=== PATIENT | female | born 1955 | race African-American/Black ===

== ENCOUNTER 2018-02-19 05:42 | Day surgery (SDC) | payer OTHER ==
[~2018-02-19] VITALS: Ht 157.5 cm; Wt 83.6 kg
[~2018-02-19 05:42] MED LIST: ACYC400T PO; CITA-106 PO; CYCL10 PO; DICL25 PO; FLUT16H NASAL; GLIP5 PO; LISI40TA4 PO; METF500T PO; MOME13HF IH; MONT10TA21 PO; OMEP20CA4 PO; PRAV20TA PO; SODIUM CHLORIDE 0.9% 1,000 ML IV ONE
[2018-02-19] MEDS ORDERED: LIDOCAINE 2% 30 ML JELLY TP ONE (05:43)
[2018-02-19] MEDS ORDERED: ALBUTEROL SULFATE 2.5 MG/0.5 ML NEB SOLUTION NEB ONE (05:43)
[2018-02-19] MEDS ORDERED: LIDOCAINE 4% 50 ML SOLUTION TP ONE (05:43)
[2018-02-19] MEDS ORDERED: BENZOCAINE 20% 50 MCG/SPRAY 57 GM TP ONE (05:43)
[2018-02-19] MEDS ORDERED: OMEP20 PO (06:15)
[2018-02-19] MEDS ORDERED: METF-960 PO (06:15)
[2018-02-19] MEDS ORDERED: ONDA4 PO (06:15)
[2018-02-19] MEDS ORDERED: GABA-531 PO (06:15)
[2018-02-19] MEDS ORDERED: ACET-2744 PO (06:15)
[2018-02-19] MEDS ORDERED: PRED10 PO (06:15)
[2018-02-19] MEDS ORDERED: CITA-106 PO (06:15)
[2018-02-19] MEDS ORDERED: TIOT185 IH (06:15)
[2018-02-19] MEDS ORDERED: CYCL10 PO (06:15)
[2018-02-19] MEDS ORDERED: FOLI1 PO (06:15)
[2018-02-19] MEDS ORDERED: MONT10TA21 PO (06:15)
[2018-02-19] MEDS ORDERED: ASPI-1182 PO (06:15)
[2018-02-19] MEDS ORDERED: PRAV20TA4 PO (06:15)
[2018-02-19] MEDS ORDERED: GLIP10 PO (06:15)
[2018-02-19] MEDS ORDERED: AMLO-512 PO (06:15)
[2018-02-19 06:59] LABS: GLUCOMETER DEV NAME(LOC) SDS 5; GLUCOSE,POINT OF CARE 140 MG/DL (70-110)
[2018-02-19] MEDS ORDERED: SODIUM CHLORIDE 0.9% 1,000 ML IV ONE (07:00)
[2018-02-19] MEDS ORDERED: FentaNYL CITRATE-PF 100 MCG/2 ML VIAL ONE (07:41)
[2018-02-19] MEDS ORDERED: MIDAZOLAM HCL 2 MG/2 ML VIAL ONE (07:41)
[2018-02-19] MEDS ORDERED: MethylPREDNISolone SOD SUCC 125 MG/2 ML VIAL IVP ONE (08:30)
[2018-02-19] MEDS ORDERED: OXYGEN THERAPY IH SCH (20:00)
== END 2018-02-19 09:40 | disposition home or self-care (01) ==
LOC: SURGERY 05:42
PROVIDERS: ATTEND Internal Medicine Critical Care Medicine
DX: J38.4 Edema of larynx (principal); B37.0 Candidal stomatitis; J84.111 Idiopathic interstitial pneumonia, not otherwise specified; J98.8 Other specified respiratory disorders; F14.21 Cocaine dependence, in remission; J44.9 Chronic obstructive pulmonary disease, unspecified; I10 Essential (primary) hypertension; E11.9 Type 2 diabetes mellitus without complications; M19.90 Unspecified osteoarthritis, unspecified site; F32.9 Major depressive disorder, single episode, unspecified; E78.00 Pure hypercholesterolemia, unspecified; K21.9 Gastro-esophageal reflux disease without esophagitis; F10.21 Alcohol dependence, in remission; Z99.81 Dependence on supplemental oxygen; Z87.01 Personal history of pneumonia (recurrent); Z79.891 Long term (current) use of opiate analgesic; Z79.82 Long term (current) use of aspirin; Z79.84 Long term (current) use of oral hypoglycemic drugs; Z87.891 Personal history of nicotine dependence; Z98.890 Other specified postprocedural states; Z79.899 Other long term (current) drug therapy
CPT/HCPCS: 31623; 31624; 71045; 82962; 87015; 87070; 87077; 87186; 87205; 87206; 87220; 88108; 88312; 99152; J2250; J2930; J3010; J7030

== ENCOUNTER 2021-02-17 06:26 | Day surgery (SDC) | payer MEDICARE, OTHER ==
[2021-02-15 12:38] LABS: COVID AG,FIA SOURCE NASOPHARYNGEAL
[~2021-02-17] VITALS: Ht 157.5 cm; Wt 73.1 kg
[~2021-02-17 06:26] MED LIST changes: -ACYC400T PO; +AMLO-257 PO; +CALC-959 PO; -CITA-106 PO; -CYCL10 PO; -DICL25 PO; +DULO60CA98 PO; +FAMO20 PO; -FLUT16H NASAL; +FLUT1BLS IH; +GABA-1181 PO; +GLIP10 PO; -GLIP5 PO; +LISI-892 PO; -LISI40TA4 PO; +METF-960 PO; -METF500T PO; -MOME13HF IH; +MONT-35 PO; -MONT10TA21 PO; -OMEP20CA4 PO; -PRAV20TA PO; +PRAV20TA4 PO; +PRED10 PO; +SITA100 PO; +SODIUM CHLORIDE 0.9% 1,000 ML ONE
[2021-02-17] MEDS ORDERED: BENZOCAINE 20% 50 MCG/SPRAY 57 GM TP ONE (06:27)
[2021-02-17] MEDS ORDERED: ALBUTEROL SULFATE 2.5 MG/0.5 ML NEB SOLUTION NEB ONE (06:27)
[2021-02-17] MEDS ORDERED: LIDOCAINE 2% 30 ML JELLY TP ONE (06:27)
[2021-02-17] MEDS ORDERED: FentaNYL CITRATE PF 100 MCG/2 ML VIAL ONE (07:48)
[2021-02-17] MEDS ORDERED: MIDAZOLAM HCL 5 MG/ML VIAL ONE (07:48)
[2021-02-17 08:11] LABS: GLUCOMETER DEV NAME(LOC) SDS.; GLUCOSE,POINT OF CARE 93 MG/DL (70-110)
[2021-02-17] MEDS ORDERED: MethylPREDNISolone SOD SUCC 125 MG/2 ML VIAL IVP ONE (09:30)
[2021-02-17] MEDS ORDERED: MethylPREDNISolone SOD SUCC 125 MG/2 ML VIAL ONE (09:56)
[2021-02-17] MEDS ORDERED: OXYGEN THERAPY IH SCH (20:00)
== END 2021-02-17 11:35 | disposition home or self-care (01) ==
LOC: SURGERY 06:26
PROVIDERS: ATTEND Internal Medicine Critical Care Medicine
DX: J38.4 Edema of larynx (principal); B37.0 Candidal stomatitis; I10 Essential (primary) hypertension; E11.9 Type 2 diabetes mellitus without complications; Z98.890 Other specified postprocedural states; Z87.891 Personal history of nicotine dependence; Z79.899 Other long term (current) drug therapy
CPT/HCPCS: 31623; 31624; 71045; 82962; 87015; 87070; 87101; 87205; 87206; 87220; 87426; 88108; 88184; 88185; 88312; C9803; J2250; J2930; J3010; J7030; J7613